=== PATIENT | male | born 1975 | race Hispanic/Latino ===

== ENCOUNTER 2023-05-15 18:40 | Emergency (ER) | payer OTHER | END 2023-05-15 20:54 | disposition home or self-care (01) | LOC: CSHERS 18:40 | DX: I83.891 Varicose veins of right lower extremity with other complications (principal); I48.91 Unspecified atrial fibrillation; I95.9 Hypotension, unspecified; I13.0 Hypertensive heart and chronic kidney disease with heart failure and stage 1 through stage 4 chronic kidney disease, or unspecified chronic kidney disease; I50.22 Chronic systolic (congestive) heart failure; N18.9 Chronic kidney disease, unspecified; E11.22 Type 2 diabetes mellitus with diabetic chronic kidney disease; K21.9 Gastro-esophageal reflux disease without esophagitis; E78.00 Pure hypercholesterolemia, unspecified | CPT/HCPCS: 12001 ==